=== PATIENT | female | born 1950 | race Caucasian/White ===

== ENCOUNTER 2019-08-01 10:45 | Inpatient (IN) ==
[2019-08-01] MEDS ORDERED: ACETAMINOPHEN 325 MG TABLET PO PRN (11:12)
[2019-08-01] MEDS ORDERED: MORPHINE 4 MG/1 ML VIAL IV PRN (11:12)
[2019-08-01] MEDS ORDERED: DEXTROSE 10% 250 ML BAG IV PRN (11:12)
[2019-08-01] MEDS ORDERED: GLUCAGON 1 MG VIAL IM PRN (11:12)
[2019-08-01] MEDS ORDERED: ONDANSETRON 4 MG/2 ML VIAL IV PRN (11:12)
[2019-08-01] MEDS ORDERED: hydrALAZINE 20 MG/1 ML VIAL IV PRN (11:18)
[2019-08-01] MEDS ORDERED: ALBUTEROL/IPRATROPIUM 3 ML NEB RESP TX PRN (11:18)
[2019-08-01 12:12] LABS: Basophils % 0.3 % (0.0-0.8); Eosinophils # 0.1 10*3/uL (0.0-0.87); Eosinophils % 0.3 % (0.00-10.9); Hematocrit 43.1 VOL% (35.7-47.0); Hemoglobin 13.4 GM/DL (12.0-16.0); Immature Granulocytes % 1.2 %; Immature Granulocytes Absolute 0.17 #; Lymphocytes # 0.8 10*3/uL (1.4-4.0); Lymphocytes % 5.4 % (21.3-54.2); Mean Corpuscular HGB Conc 31.1 GM/DL (32-36); Mean Corpuscular Volume 86.2 FL (87-102); Mean Platelet Volume 11.6 FL (9.6-12.0); Monocytes % 6.8 % (1.7-12.7); Platelet Count 237 T/CUMM (130-400); Red Cell Distribution Width 15.2 % (9.3-17.3); White Blood Count 14.6 T/CUMM (4-12)
[2019-08-01] MEDS: INSULIN LISPRO 100 UNIT/ML SUBCUT SCH ×2 (12:21→16:07)
[2019-08-01 12:58] LABS: Albumin 3.4 G/DL (3.4-5.0); Bilirubin,Total 0.5 MG/DL (0.2-1.0); Calcium 9.5 MG/DL (8.5-10.1); Osmolality,Calculated 266.4 MOS/KG (273-304); Total Protein 8.5 G/DL (6.4-8.3); Troponin I < 0.015 NG/ML (0.00-0.045)
[2019-08-01] MEDS: cefTRIAXone 1,000 MG in SYRINGE 1 EACH IV SCH (14:17)
[2019-08-01] MEDS: AZITHROMYCIN INJ 500 MG in SODIUM CHLORIDE 0.9% 250 ML IV SCH (14:17)
[2019-08-01] MEDS: methylPREDNISolone SOD SUC 40 MG/1 ML VIAL IV SCH ×2 (14:17→21:11)
[2019-08-01] MEDS: ALBUTEROL/IPRATROPIUM 3 ML NEB RESP TX SCH ×3 (15:10→23:02)
[2019-08-01] MEDS ORDERED: ALBUTEROL 2.5 MG/3 ML NEB RESP TX PRN (16:11)
[2019-08-01] MEDS: DOCUSATE SODIUM 100 MG CAPSULE PO SCH (21:05)
[2019-08-01] MEDS: traZODone 50 MG TABLET PO SCH (21:05)
[2019-08-01] MEDS: PRIMIDONE 50 MG TABLET PO SCH (21:05)
[2019-08-01] MEDS: PARoxetine 20 MG TABLET PO SCH (21:05)
[2019-08-01] MEDS: BACLOFEN 10 MG TABLET PO SCH (21:05)
[2019-08-01 23:42] LABS: Apearance,Urine CLEAR (Clear); Bilirubin,Urine Negative (Negative); Blood, Urine Small mg/dL (Negative); Glucose,Urine (UA) >=500 mg/dL (Negative); Ketones,Urine 5 mg/dL (Negative); Nitrite,Urine Negative (Negative); Protein,Urine Negative; RBC,Urine 1 /HPF (0-4); Squamous Epithelial Cell,Urine Occasional /HPF (0-10); Urine Color Straw (Yellow); Urine Specific Gravity 1.022 (1.001-1.035); Urine Urobilinogen < 2.0 EU/DL (0.2-1.0); WBC,Urine <1 /HPF (0-6)
[2019-08-02] MEDS: INSULIN LISPRO 100 UNIT/ML SUBCUT SCH ×5 (00:38→21:55)
[2019-08-02] MEDS: ALBUTEROL/IPRATROPIUM 3 ML NEB RESP TX SCH ×6 (02:25→23:30)
[2019-08-02] MEDS: methylPREDNISolone SOD SUC 40 MG/1 ML VIAL IV SCH ×2 (04:41→16:54)
[2019-08-02] MEDS: PANTOPRAZOLE 40 MG TABLET PO SCH (06:05)
[2019-08-02 06:34] LABS: Basophils % 0.2 % (0.0-0.8); Hematocrit 42.7 VOL% (35.7-47.0); Hemoglobin 13.2 GM/DL (12.0-16.0); Immature Granulocytes % 1.1 %; Immature Granulocytes Absolute 0.14 #; Lymphocytes # 0.6 10*3/uL (1.4-4.0); Lymphocytes % 4.4 % (21.3-54.2); Mean Corpuscular HGB Conc 30.9 GM/DL (32-36); Mean Platelet Volume 11.9 FL (9.6-12.0); Monocytes % 2.1 % (1.7-12.7); Neutrophils % 92.2 % (38.7-73.9); Platelet Count 265 T/CUMM (130-400); Red Blood Count 4.91 MC/CUMM (3.8-5.5); Red Cell Distribution Width 14.8 % (9.3-17.3)
[2019-08-02 06:48] LABS: Calcium 9.3 MG/DL (8.5-10.1); Osmolality,Calculated 271.2 MOS/KG (273-304)
[2019-08-02 06:58] LABS: Lymphocytes 2 % (20-55); Segmented Neutrophils 95 % (50-85); Total Cells Counted 100
[2019-08-02 06:59] LABS: Hypochromasia 1+; Platelet Estimate Adequate
[2019-08-02] MEDS: cefTRIAXone 1,000 MG in SYRINGE 1 EACH IV SCH (09:36)
[2019-08-02] MEDS: AZITHROMYCIN INJ 500 MG in SODIUM CHLORIDE 0.9% 250 ML IV SCH (09:37)
[2019-08-02] MEDS: amLODIPine 10 MG TABLET PO SCH (09:37)
[2019-08-02] MEDS: BACLOFEN 10 MG TABLET PO SCH ×2 (09:37→21:53)
[2019-08-02] MEDS: PARoxetine 20 MG TABLET PO SCH ×2 (09:37→21:54)
[2019-08-02] MEDS: DOCUSATE SODIUM 100 MG CAPSULE PO SCH ×2 (09:37→21:54)
[2019-08-02] MEDS: POTASSIUM CHLORIDE 20 MEQ TABLET PO SCH (09:37)
[2019-08-02] MEDS: guaiFENesin 200 MG/10 ML UDCUP PO PRN (12:53)
[2019-08-02] MEDS: BENZONATATE 100 MG CAPSULE PO PRN (12:53)
[2019-08-02] MEDS: NYSTATIN CREAM 15 GM TUBE TOP SCH ×2 (14:57→22:01)
[2019-08-02] MEDS: PRIMIDONE 50 MG TABLET PO SCH (21:53)
[2019-08-02] MEDS: traZODone 50 MG TABLET PO SCH (21:53)
[2019-08-03] MEDS: BENZONATATE 100 MG CAPSULE PO PRN (00:46)
[2019-08-03] MEDS: guaiFENesin 200 MG/10 ML UDCUP PO PRN (00:47)
[2019-08-03] MEDS: ALBUTEROL/IPRATROPIUM 3 ML NEB RESP TX SCH ×4 (03:29→14:20)
[2019-08-03 05:34] LABS: Basophils % 0.1 % (0.0-0.8); Hematocrit 41.4 VOL% (35.7-47.0); Hemoglobin 12.6 GM/DL (12.0-16.0); Immature Granulocytes % 1.3 %; Immature Granulocytes Absolute 0.16 #; Lymphocytes % 7.7 % (21.3-54.2); Mean Corpuscular HGB Conc 30.4 GM/DL (32-36); Mean Corpuscular Volume 86.8 FL (87-102); Mean Platelet Volume 11.7 FL (9.6-12.0); Monocytes % 5.9 % (1.7-12.7); Platelet Count 264 T/CUMM (130-400); Red Blood Count 4.77 MC/CUMM (3.8-5.5); Red Cell Distribution Width 15.1 % (9.3-17.3); White Blood Count 12.5 T/CUMM (4-12)
[2019-08-03 05:51] LABS: Calcium 9.3 MG/DL (8.5-10.1)
[2019-08-03] MEDS: PANTOPRAZOLE 40 MG TABLET PO SCH (06:03)
[2019-08-03] MEDS: methylPREDNISolone SOD SUC 40 MG/1 ML VIAL IV SCH (06:03)
[2019-08-03] MEDS: INSULIN LISPRO 100 UNIT/ML SUBCUT SCH ×2 (07:59→12:38)
[2019-08-03] MEDS: PARoxetine 20 MG TABLET PO SCH (09:36)
[2019-08-03] MEDS: DOCUSATE SODIUM 100 MG CAPSULE PO SCH (09:36)
[2019-08-03] MEDS: BACLOFEN 10 MG TABLET PO SCH (09:36)
[2019-08-03] MEDS: amLODIPine 10 MG TABLET PO SCH (09:37)
[2019-08-03] MEDS: NYSTATIN CREAM 15 GM TUBE TOP SCH (09:37)
[2019-08-03] MEDS: cefTRIAXone 1,000 MG in SYRINGE 1 EACH IV SCH (09:37)
[2019-08-03] MEDS: POTASSIUM CHLORIDE 20 MEQ TABLET PO SCH (09:37)
[2019-08-03] MEDS: AZITHROMYCIN INJ 500 MG in SODIUM CHLORIDE 0.9% 250 ML IV SCH (09:38)
[2019-08-03 12:38] VITALS: BP 129/69
== END 2019-08-03 16:04 | disposition home health service (06) | DRG 190 ==
LOC: N.2E
PROVIDERS: ADMIT Family Medicine; ATTEND Family Medicine

== ENCOUNTER 2021-09-26 10:52 | Observation (INO) ==
[2021-09-26 12:10] LABS: Bacteria,Urine Moderate /HPF (Few); Mucus,Urine Occasional /LPF (Occasional); Squamous Epithelial Cell,Urine Few /HPF (0-10)
[2021-09-26 12:11] LABS: Bilirubin,Urine Negative (Negative); Blood, Urine Trace mg/dL (Negative); Glucose,Urine (UA) Negative (Negative); Ketones,Urine Negative (Negative); Nitrite,Urine Positive (Negative); Protein,Urine Negative (Negative); Urine Appearance Clear (Clear); Urine Color Yellow (Yellow); Urine Specific Gravity 1.025 (1.001-1.035); Urine Urobilinogen 0.2 eU/dL (<2.0); Urine pH 5.5 (4.5-8.0)
[2021-09-26 12:28] LABS: Basophils % 0.3 % (0.0-0.8); Eosinophils # 0.2 10*3/uL (0.0-0.87); Eosinophils % 1.9 % (0.00-10.9); Hematocrit 41.8 VOL% (35.7-47.0); Hemoglobin 13.2 GM/DL (12.0-16.0); Immature Granulocytes % 0.4 %; Immature Granulocytes Absolute 0.03 #; Lymphocytes # 0.7 10*3/uL (1.4-4.0); Lymphocytes % 8.9 % (21.3-54.2); Mean Corpuscular HGB Conc 31.6 GM/DL (32-36); Mean Corpuscular Volume 88.2 FL (87-102); Monocytes # 0.7 10*3/uL (0.11-0.8); Monocytes % 8.4 % (1.7-12.7); Neutrophils % 80.1 % (38.7-73.9); Platelet Count 189 T/CUMM (130-400); Red Blood Count 4.74 MC/CUMM (3.8-5.5); Red Cell Distribution Width 15.2 % (9.3-17.3); White Blood Count 7.9 T/CUMM (4-12)
[2021-09-26 12:30] LABS: Barbiturates Screen,Urine Positive (Negative); Benzodiazepines Screen,Urine Positive (Negative); Cannabinoid Screen,Urine Negative (Negative); Opiate Screen,Urine Positive (Negative); Phencyclidine Screen,Urine Negative (Negative)
[2021-09-26 12:50] LABS: Alanine Aminotransferase 38 U/L (13-56); Albumin 3.6 G/DL (3.4-5.0); Alkaline Phosphatase 96 U/L (45-117); Aspartate Amino Transferase 41 U/L (0-37); Bilirubin,Total < 0.39 MG/DL (0.20-1.00); Blood Urea Nitrogen 16 MG/DL (7-18); CKMB % 0.91 %; Calcium 9.3 MG/DL (8.5-10.1); Carbon Dioxide 31 MMOL/L (21-32); Chloride 103 MMOL/L (98-107); Estimated Glom Filtration Rate 93 ML/MIN; Glucose 153 MG/DL (74-106); High Sensitive Troponin I* 10.3 ng/L (0-54); Osmolality,Calculated 282.4 MOS/KG (273-304); Potassium 4.4 MMOL/L (3.5-5.1); Sodium 140 MMOL/L (136-145)
[2021-09-26] MEDS ORDERED: GLUCAGON 1 MG VIAL IM PRN ×2 (13:15→16:18)
[2021-09-26] MEDS ORDERED: DEXTROSE 10% 250 ML BAG IV PRN (13:18)
[2021-09-26] MEDS ORDERED: ALBUTEROL/IPRATROPIUM 3 ML NEB RESP TX STA (14:24)
[2021-09-26] MEDS ORDERED: DEXTROSE 50% 25 GM/50 ML VIAL IV PRN (16:18)
[2021-09-26] MEDS ORDERED: ACETAMINOPHEN 325 MG TABLET PO PRN (16:18)
[2021-09-26] MEDS ORDERED: ONDANSETRON 4 MG/2 ML VIAL IV PRN (16:18)
[2021-09-26] MEDS: SODIUM CHLORIDE 0.9% 1,000 ML IV SCH (18:05)
[2021-09-26] MEDS ORDERED: PRIMIDONE 50 MG TABLET PO SCH (21:00)
[2021-09-26] MEDS: NITROFURANTOIN MACRO/MONO 100 MG CAPSULE PO SCH (21:47)
[2021-09-26] MEDS: GABAPENTIN 400 MG CAPSULE PO SCH (21:47)
[2021-09-26] MEDS: THEOPHYLLINE ER (24 HR) 400 MG TABLET PO SCH (21:48)
[2021-09-26] MEDS: DOCUSATE SODIUM 100 MG CAPSULE PO SCH (21:48)
[2021-09-26] MEDS: ALPRAZolam 0.25 MG TABLET PO SCH (21:49)
[2021-09-27] MEDS: SODIUM CHLORIDE 0.9% 1,000 ML IV SCH (05:16)
[2021-09-27 05:32] LABS: Basophils % 0.6 % (0.0-0.8); Eosinophils # 0.2 10*3/uL (0.0-0.87); Eosinophils % 3.2 % (0.00-10.9); Hematocrit 40.9 VOL% (35.7-47.0); Hemoglobin 12.7 GM/DL (12.0-16.0); Immature Granulocytes % 0.4 %; Immature Granulocytes Absolute 0.02 #; Lymphocytes # 1.1 10*3/uL (1.4-4.0); Lymphocytes % 20.3 % (21.3-54.2); Mean Corpuscular HGB Conc 31.1 GM/DL (32-36); Mean Corpuscular Volume 89.3 FL (87-102); Mean Platelet Volume 12.3 FL (9.6-12.0); Monocytes # 0.8 10*3/uL (0.11-0.8); Monocytes % 14.4 % (1.7-12.7); Neutrophils % 61.1 % (38.7-73.9); Platelet Count 177 T/CUMM (130-400); Red Blood Count 4.58 MC/CUMM (3.8-5.5); Red Cell Distribution Width 15.2 % (9.3-17.3); White Blood Count 5.3 T/CUMM (4-12)
[2021-09-27 05:52] LABS: Osmolality,Calculated 281.4 MOS/KG (273-304); Potassium 3.8 MMOL/L (3.5-5.1)
[2021-09-27] MEDS ORDERED: PANTOPRAZOLE 40 MG TABLET PO SCH (06:00)
[2021-09-27] MEDS ORDERED: metFORMIN 500 MG TABLET PO SCH (08:00)
[2021-09-27 08:09] VITALS: BP 131/90
[2021-09-27] MEDS: THEOPHYLLINE ER (24 HR) 400 MG TABLET PO SCH (08:55)
[2021-09-27] MEDS: ALPRAZolam 0.25 MG TABLET PO SCH (08:55)
[2021-09-27] MEDS: GABAPENTIN 400 MG CAPSULE PO SCH (08:56)
[2021-09-27] MEDS: NITROFURANTOIN MACRO/MONO 100 MG CAPSULE PO SCH (08:56)
[2021-09-27] MEDS: DOCUSATE SODIUM 100 MG CAPSULE PO SCH (08:56)
[2021-09-27] MEDS ORDERED: BENZTROPINE 0.5 MG TABLET PO SCH (09:00)
[2021-09-27] MEDS ORDERED: COLCHICINE 0.6 MG CAPSULE PO SCH (09:00)
[2021-09-27] MEDS ORDERED: MELOXICAM 7.5 MG TABLET PO SCH (09:00)
[2021-09-27] MEDS ORDERED: amLODIPine 10 MG TABLET PO SCH (09:00)
[2021-09-27] MEDS ORDERED: METHOCARBAMOL 500 MG TABLET PO SCH (09:00)
[2021-09-27] MEDS ORDERED: BREXPIPRAZOLE 4 MG PO SCH (09:00)
== END 2021-09-27 10:35 | disposition home or self-care (01) ==
LOC: EDUNIT# → EDBD → N.3E 10:52 → N.ED 10:52 → N.3E 16:30
PROVIDERS: ADMIT Family Medicine; ATTEND Internal Medicine